=== PATIENT | female | born 1940 | race Asian ===

== ENCOUNTER 2017-11-28 17:19 | Inpatient (IN) | payer MEDICARE, OTHER ==
[~2017-11-28] VITALS: Ht 149.9 cm; Wt 55.4 kg
[~2017-11-28 17:19] MED LIST: NO MEDS
[2017-11-28] MEDS ORDERED: 0.9% SODIUM CHLORIDE 10 ML SYRINGE IVP PRN ×2 (17:26→19:45)
[2017-11-28 18:25] LABS: BASOPHILS % (AUTO) 0.9 % (0.0-2.0); EOSINOPHILS % (AUTO) 5.4 % (1.0-6.0); HEMATOCRIT 38.8 % (36-46); HEMOGLOBIN 12.7 g/dL (12.0-16.0); LYMPHOCYTES # (AUTO) 1.6 K/uL (1.0-4.8); LYMPHOCYTES % (AUTO) 21.5 % (22.0-44.0); MEAN CORPUSCULAR HEMOGLOBIN 25.6 pg (26.0-34.0); MEAN CORPUSCULAR HGB CONC 32.8 G/dL (31.0-37.0); MEAN CORPUSCULAR VOLUME 78 fL (80-100); MONOCYTES # (AUTO) 0.6 K/uL (0.1-1.0); MONOCYTES % (AUTO) 7.3 % (2.0-9.0); NEUTROPHILS % (AUTO) 64.9 % (40.0-70.0); PLATELET COUNT (AUTO) 191 K/uL (150-450); RED BLOOD CELL COUNT(AUTO) 4.98 MIL/uL (4.00-5.20); RED CELL DISTRIBUTION WIDTH 14.8 % (11.5-14.5)
[2017-11-28] MEDS ORDERED: NiCARDipine HCL 50 MG in DEXTROSE 5%-WATER 230 ML IV PRN (18:30)
[2017-11-28 18:38] LABS: PROTHROMBIN TIME 10.8 SEC (9.4-11.6)
[2017-11-28 18:41] LABS: ANION GAP 6 mmol/L (8-16); CALCIUM, TOTAL 8.9 mg/dL (8.8-10.5); CARBON DIOXIDE 27 mmol/L (22-29); CHLORIDE 105 mmol/L (98-107); CREATININE 1.64 mg/dL (0.60-1.30); GLOMERULAR FILTR. RATE CALC 30 mL/min (>60); GLUCOSE,RANDOM 131 mg/dL (70-110); POTASSIUM 4.1 mmol/L (3.5-5.1); SODIUM SERUM 138 mmol/L (136-145); UREA NITROGEN, BLOOD 36 mg/dL (7-18)
[2017-11-28 19:06] LABS: ALANINE AMINOTRANSFERASE 20 U/L (12-78); ALBUMIN 2.9 g/dL (3.4-5.0); ALKALINE PHOSPHATASE 74 U/L (46-116); ASPARTATE AMINOTRANSFERASE 22 U/L (15-37); BILIRUBIN,TOTAL 0.5 mg/dL (0.1-1.0); CREATINE KINASE MB 1.2 ng/mL (0-5); CREATINE KINASE, TOTAL 90 U/L (26-192); TOTAL PROTEIN, SERUM 6.2 g/dL (6.4-8.2)
[2017-11-28] MEDS ORDERED: ACETAMINOPHEN 325 MG TABLET PO PRN ×2 (19:45→20:45)
[2017-11-28] MEDS ORDERED: ONDANSETRON HCL 4 MG/2 ML VIAL IVP PRN (19:45)
[2017-11-28 20:15] LABS: APPEARANCE,URINE CLEAR (CLEAR); BILIRUBIN,URINE NEGATIVE (NEGATIVE); GLUCOSE, URINE (UA) NEGATIVE (NEGATIVE); KETONES,URINE NEGATIVE (NEGATIVE); LEUKOCYTE ESTERASE ,URINE NEGATIVE (NEGATIVE); NITRATE,URINE NEGATIVE (NEGATIVE); OCCULT BLOOD,URINE NEGATIVE (NEGATIVE); PROTEIN,URINE POS 1+ (NEGATIVE); UROBILINOGEN,URINE 0.2 mg/dL (<=1.0)
[2017-11-28 20:34] LABS: BACTERIA,URINE None Seen /HPF (None Seen); RBC,URINE 0-2 /HPF (0-2); SQUAMOUS EPITHELIAL CELL,UR Rare /LPF (None Seen); WBC,URINE None Seen /HPF (0-5)
[2017-11-28] MEDS ORDERED: SODIUM CHLORIDE 0.9% 1,000 ML IV ONE (20:45)
[2017-11-28] MEDS ORDERED: OxyCODONE HCL/ACETAMINOPHEN 5-325 MG TABLET PO PRN (20:45)
[2017-11-28] MEDS ORDERED: ALBUTEROL SULFATE 2.5 MG/0.5 ML NEB SOLUTION NEB PRN (20:45)
[2017-11-28] MEDS ORDERED: BISACODYL 10 MG RECTAL RECTAL SUPPOSITORY PR PRN (20:45)
[2017-11-28] MEDS: ASPIRIN 81 MG CHEWABLE TABLET PO SCH (22:26)
[2017-11-28] MEDS: DOCUSATE SODIUM 100 MG CAPSULE PO SCH (22:26)
[2017-11-28] MEDS: AmLODIPine BESYLATE 10 MG TABLET PO SCH (22:26)
[2017-11-28] MEDS: ATORVASTATIN CALCIUM 20 MG TABLET PO SCH (22:26)
[2017-11-28] MEDS: HEPARIN SODIUM,PORCINE 5,000 UNITS/ML VIAL SQ SCH (22:26)
[2017-11-28] MEDS ORDERED: NICARDipine 20 MG/DEXT,ISO-OSM 200 ML IV PRN (22:55)
[2017-11-29] VITALS (9 sets, daily range): BP systolic 133–152; BP diastolic 84–104
[2017-11-29] MEDS ORDERED: FEBU80TA PO (00:56)
[2017-11-29] MEDS ORDERED: CLON0.1T PO (00:56)
[2017-11-29] MEDS ORDERED: CHOL2000 PO (00:56)
[2017-11-29] MEDS ORDERED: FENO48TA4 PO (00:56)
[2017-11-29] MEDS ORDERED: PRED5TAB PO (00:56)
[2017-11-29 06:12] LABS: BASOPHILS % (AUTO) 1.1 % (0.0-2.0); HEMATOCRIT 42.5 % (36-46); HEMOGLOBIN 14.2 g/dL (12.0-16.0); LYMPHOCYTES # (AUTO) 1.6 K/uL (1.0-4.8); LYMPHOCYTES % (AUTO) 18.6 % (22.0-44.0); MEAN CORPUSCULAR HEMOGLOBIN 25.9 pg (26.0-34.0); MEAN CORPUSCULAR HGB CONC 33.5 G/dL (31.0-37.0); MEAN CORPUSCULAR VOLUME 77 fL (80-100); MONOCYTES # (AUTO) 0.5 K/uL (0.1-1.0); MONOCYTES % (AUTO) 6.6 % (2.0-9.0); NEUTROPHILS # (AUTO) 5.7 K/uL (1.8-7.7); NEUTROPHILS % (AUTO) 68.7 % (40.0-70.0); PLATELET COUNT (AUTO) 216 K/uL (150-450); RED BLOOD CELL COUNT(AUTO) 5.49 MIL/uL (4.00-5.20); RED CELL DISTRIBUTION WIDTH 14.8 % (11.5-14.5)
[2017-11-29 06:18] LABS: ALBUMIN 3.2 g/dL (3.4-5.0); BILIRUBIN,TOTAL 0.6 mg/dL (0.1-1.0); CALCIUM, TOTAL 9.2 mg/dL (8.8-10.5); CREATININE 1.59 mg/dL (0.60-1.30); POTASSIUM 3.7 mmol/L (3.5-5.1); TOTAL PROTEIN, SERUM 6.6 g/dL (6.4-8.2)
[2017-11-29] MEDS: DOCUSATE SODIUM 100 MG CAPSULE PO SCH ×2 (07:38→21:08)
[2017-11-29] MEDS: PANTOPRAZOLE SODIUM 40 MG DR TABLET PO SCH (07:39)
[2017-11-29] MEDS: AmLODIPine BESYLATE 10 MG TABLET PO SCH (07:39)
[2017-11-29] MEDS: ASPIRIN 81 MG CHEWABLE TABLET PO SCH (07:40)
[2017-11-29] MEDS: HEPARIN SODIUM,PORCINE 5,000 UNITS/ML VIAL SQ SCH ×2 (07:40→21:09)
[2017-11-29] MEDS: LOSARTAN POTASSIUM 25 MG TABLET PO SCH ×2 (09:13→21:08)
[2017-11-29 13:33] LABS: HEMOGLOBIN A1C 5.7 % (4.5-6.2)
[2017-11-29 13:41] LABS: CHOL/HDL RATIO 4.1 (3.9-5.7)
[2017-11-29 13:58] LABS: FOLATE SERUM 12.7 ng/mL (5.4-)
[2017-11-29] MEDS: ATORVASTATIN CALCIUM 20 MG TABLET PO SCH (21:08)
[2017-11-30 00:55] VITALS: BP 135/75
[2017-11-30 04:44] VITALS: BP 113/70
[2017-11-30] MEDS: AmLODIPine BESYLATE 10 MG TABLET PO SCH (08:19)
[2017-11-30] MEDS: PANTOPRAZOLE SODIUM 40 MG DR TABLET PO SCH (08:19)
[2017-11-30] MEDS: LOSARTAN POTASSIUM 25 MG TABLET PO SCH (08:19)
[2017-11-30] MEDS: ASPIRIN 81 MG CHEWABLE TABLET PO SCH (08:19)
[2017-11-30] MEDS: HEPARIN SODIUM,PORCINE 5,000 UNITS/ML VIAL SQ SCH (08:19)
[2017-11-30] MEDS: DOCUSATE SODIUM 100 MG CAPSULE PO SCH (08:19)
[2017-11-30 08:29] VITALS: BP 136/80
[2017-11-30] MEDS ORDERED: ASPI-1182 PO (11:38)
[2017-11-30] MEDS ORDERED: ATOR20TA86 PO (11:38)
[2017-11-30] MEDS ORDERED: AMLO-512 PO (11:39)
[2017-11-30] MEDS ORDERED: LOSA25TA21 PO (11:40)
[2017-11-30 11:52] VITALS: BP 118/79
== END 2017-11-30 16:20 | disposition home health service (06) | DRG 683 ==
LOC: EMS 17:20 → ICU 19:30 → 5S 11-29 17:05
PROVIDERS: ADMIT Internal Medicine; ATTEND Internal Medicine
DX: N17.9 Acute kidney failure, unspecified (principal); G45.9 Transient cerebral ischemic attack, unspecified; I16.1 Hypertensive emergency; I16.0 Hypertensive urgency; I10 Essential (primary) hypertension; M10.9 Gout, unspecified; M19.90 Unspecified osteoarthritis, unspecified site; I67.1 Cerebral aneurysm, nonruptured; Z79.82 Long term (current) use of aspirin
CPT/HCPCS: 70496; 70551; 82607; 82746; 83036; 87081; 93005; 93306; 93880; 96365; 97163; 97530; 99291; J1644; J3490; J7030; J7060